=== PATIENT | female | born 1995 | race Caucasian/White ===

== ENCOUNTER 2017-01-20 22:17 | Emergency (ER) | payer OTHER ==
[2017-01-20 23:55] LABS: RED BLOOD COUNT 4.45 M/UL (4.00-5.10); WHITE BLOOD COUNT 12.4 K/UL (4.5-11.0)
[2017-01-21 00:17] LABS: BUN/CREATININE RATIO 14 (0-10)
== END 2017-01-21 03:09 | disposition home or self-care (01) ==
LOC: ER1 22:17
PROVIDERS: Physician Assistant
DX: O23.41 Unspecified infection of urinary tract in pregnancy, first trimester (principal); Z88.2 Allergy status to sulfonamides; Z3A.10 10 weeks gestation of pregnancy
CPT/HCPCS: 36415; 80053; 81001; 83690; 84702; 85025; 86900; 86901; 87086; 87210; 96360; 96361; 99284